=== PATIENT | female | born 1950 | race Hispanic/Latino ===

== ENCOUNTER 2018-06-06 23:45 | Emergency (ER) | payer MEDICARE ==
[2018-06-07 00:24] LABS: #Basophils 0.1 thou/uL (0.0-0.2); #Eosinphils 0.1 thou/uL (0.0-0.7); #Lymphocytes 2.1 thou/uL (1.20-3.40); #Monocytes 0.4 thou/uL (0.11-0.59); #Neutrophils 2.8 thou/uL (1.40-6.50); %Basophils 2.5 % (0.0-1.0); %Eosinophils 2.3 % (0.0-10.0); %Monocytes 7.6 % (0.0-10.0); %Neutrophils 49.6 % (42.0-75.0); Hemoglobin 13.2 g/dL (12.0-16.0); Mean Corpuscular HGB CONC 33.2 g/dL (32.0-36.0); Mean Corpuscular Hemoglobin 30.6 pg (27.0-31.0); Mean Corpuscular Volume 92.1 fL (78.0-98.0); Mean Platelet Volume 7.4 fL (7.4-10.4); Platelet Count 200 thou/uL (130-400); RBC Distribution Width 12.8 % (11.5-14.5); Red Blood Cell (RBC) Count 4.32 mill/uL (4.20-5.40); White Blood Cell (WBC) Count 5.6 thou/uL (4.8-10.8)
[2018-06-07 01:19] LABS: ALT (SGPT) 28 U/L (8-55); AST (SGOT) 29 U/L (5-34); Albumin 4.4 g/dL (3.4-4.8); Alkaline Phosphatase 116 U/L (40-150); Anion Gap 11 mmol/L (10-20); BUN (Urea Nitrogen) 12 mg/dL (9.8-20.1); Bilirubin, Total 0.4 mg/dL (0.2-1.2); Calc. Creatinine Clearance 0 mL/min (70-130); Calcium 9.6 mg/dL (7.8-10.44); Carbon Dioxide 25 mmol/L (23-31); Chloride 105 mmol/L (98-107); Estimated GFR-MDRD 75; Globulin 3.5 g/dL (2.4-3.5); Glucose 103 mg/dL (80-115); Potassium 4.1 mmol/L (3.5-5.1); Protein, Total 7.9 g/dL (6.0-8.3); Sodium 137 mmol/L (136-145)
[2018-06-07] MEDS ORDERED: Acetaminophen 500 MG TAB ONE (01:19)
[2018-06-07] MEDS ORDERED: Metoclopramide HCl 10 MG/2 ML VIAL ONE (01:19)
[2018-06-07] MEDS ORDERED: diphenhydrAMINE 50 MG/ML VIAL ONE (01:19)
[2018-06-07 03:27] LABS: Troponin I Less than 0.010 ng/mL (< 0.028)
--- NOTE | 2018-06-07 07:40 | RAD ---
CHEST 1 VIEW: Date: 06/06/18 HISTORY: Chest pain. COMPARISON: None. FINDINGS: Heart size mildly enlarged. Mild pulmonary venous congestion. No pneumothorax. No effusion. No acute osseous abnormality. IMPRESSION: Mild cardiomegaly and pulmonary venous congestion. POS: [facility]
--- NOTE | 2018-06-09 19:51 | EKG ---
Test Reason : Blood Pressure : / mmHG Vent. Rate : 056 BPM Atrial Rate : 056 BPM P-R Int : 144 ms QRS Dur : 088 ms QT Int : 436 ms P-R-T Axes : -16 002 057 degrees QTc Int : 420 ms Sinus bradycardia Nonspecific ST and T wave abnormality Abnormal ECG Confirmed by ALEN PONCE DO ([id number]), graphic editor RACHEL HECTOR ([id number]) on 06/09/2018 7:51:00 PM Referred By: Confirmed By:ALEN PONCE DO
== END 2018-06-07 03:49 | disposition home or self-care (01) ==
LOC: ERS 23:45
DX: R07.89 Other chest pain (principal); R51 Headache; E03.9 Hypothyroidism, unspecified; E78.5 Hyperlipidemia, unspecified; I10 Essential (primary) hypertension; R00.1 Bradycardia, unspecified; Z79.82 Long term (current) use of aspirin; Z79.899 Other long term (current) drug therapy
CPT/HCPCS: 36415; 71045; 80053; 82553; 84484; 85025; 93005; 96374; 96375; J1200; J2765